=== PATIENT | female | born 1945 | race African-American/Black ===

== ENCOUNTER 2017-08-23 23:04 | Inpatient (IN) | payer MEDICARE, MEDICAID ==
[~2017-08-23] VITALS: Ht 167.6 cm; Wt 109.3 kg
--- NOTE | ~2017-08-23 | EC ---
PATIENT:ONEL BELTRAN DATE OF SERVICE: 08/23/17 SEX: F MEDICAL RECORD: [id number] DATE OF : 49 LOCATION:D.M2 D.211 AGE OF PATIENT: 72 ADMISSION DATE: 08/23/17 REFERRING PHYSICIAN: INTERPRETING PHYSICIAN: RAFITA JO MD ECHOCARDIOGRAM REPORT ECHO CHARGES 4 ECHO COMPLETE Date: 08/26 CLINICAL DIAGNOSIS: HTN ECHOCARDIOGRAPHIC MEASUREMENTS (adult normal given) AC root (d.<3.7cm) 3.4 cm LV Septum d (<1.2 cm> 1.7 cm Valve Excursion 2.1 cm LV Septum (systole) 2.4 cm Left Atria (s.<4.0cm> 3.4 cm LVPW d(<1.2cm) 1.4 cm RV (d.<2.3cm) 2.8 cm LVPW (sytole) 2.0 cm LV diastole(<5.6CM) 5.1 cm MV E-F(>70mm/sec) cm LV systole 2.5 cm LVOT Diameter 2.0 cm MV exc.(>10mm) cm Est.ejection fraction (50-75%) % DOPPLER: LVIT cm/sec A 71.0 cm/sec E 100 cm/sec LA cm/sec RVSP 30.0 mmHg LVOT 125 cm/sec AOP1/2T m/s Asc. Ao 165 cm/sec RVOT 89.0 cm/sec RA cm/sec PA 95.0 cm/sec AV Gradient Peak 11.0 mmHg AV Mean 5.6 mmHg AV Area 2.4 cm MV Gradient Peak 5.0 mmHg MV Mean 1.5 mmHg MV Area cm COMMENTS: Electrician Second: 1 MARYBETH EUBANKSOE Insulator Apprentice: 3 Dr. Mauro TAPE# PACS Pericardial Effusion N DATE OF SERVICE: 08/26/2017 Adequate 2D echo, color flow and spectral Doppler, and M-mode. Mild LVH. LV internal dimension normal. Wall motion normal. EF is greater than or equal to 55%. Aortic valve sclerosis, but no evidence of stenosis on Doppler interrogation. Left atrium is normal at 3.4 cm. Mitral valve shows no prolapse. Trace MR. Right-sided chambers normal. Trace TR. TRANSINT:[id number] Voice Confirmation ID: [id number] DOCUMENT ID: [id number] ECHOCARDIOGRAM REPORT [id number] RUBY,NECIE RAFITA JO MD at 1155 CC: [id number] DICTATION DATE: 08/26/17 1055 BLASTING GANG MINER: 08/26/17 1230 DIS IN 08/27/17 [place] [id number] [place] [id number]
[2017-08-24] MEDS ORDERED: SYNTHROID50 MCG PO (00:12)
[2017-08-24] MEDS ORDERED: BETOPTIC 0.5% 55 ML EACH EYE (00:13)
[2017-08-24] MEDS ORDERED: CARDURA1 MG PO (00:13)
[2017-08-24] MEDS ORDERED: PROLIA INJ 660 MG/M1 IJ (00:14)
[2017-08-24] MEDS ORDERED: DICLOFENAC SODI50 MG PO (00:34)
[2017-08-24] MEDS ORDERED: COLACE100 MG PO (00:34)
[2017-08-24] MEDS ORDERED: HCTZ25 MG PO (00:35)
[2017-08-24] MEDS ORDERED: LINZESS290 MCG PO (00:35)
[2017-08-24] MEDS ORDERED: ZESTRIL20 MG PO (00:36)
[2017-08-24] MEDS ORDERED: ATIVAN0.5 MG PO (00:36)
[2017-08-24] MEDS ORDERED: ROBAXIN500 MG PO (00:37)
[2017-08-24] MEDS ORDERED: PROTONIX40 MG PO (00:38)
[2017-08-24] MEDS ORDERED: LYRICA50 MG PO (00:38)
[2017-08-24] MEDS ORDERED: ULTRAM50 MG PO (00:39)
[2017-08-24 03:33] VITALS: BP 115/57
[2017-08-24 06:14] VITALS: BP 115/57; BMI 37.0
[2017-08-24 07:58] VITALS: BP 124/64
[2017-08-24 10:54] LABS: BASOPHILS 0.3 % (0-2); EOSINOPHILS 2.5 % (0-7); HEMATOCRIT 31.5 % (36.0-48.0); HEMOGLOBIN 9.8 g/dL (12-16); IMMATURE GRANULOCYTES 0.1 % (0-5); LYMPHOCYTES 27.1 % (15-50); MCH 25.9 pg (26.0-34.0); MCHC 31.1 g/dL (31.0-37.0); MCV 83.1 fL (80.0-100.0); MEAN PLATELET VOLUME 8.8 fL (7.4-10.4); MONOCYTES 5.9 % (2-11); NEUTROPHILS 64.1 % (40-80); PLATELET COUNT 219 10x3/uL (130-400); RBC 3.79 10x6/uL (4.00-5.40); RDW 13.8 % (11.5-14.5); WBC 6.8 10x3/uL (4.8-10.8)
[2017-08-24 11:08] LABS: INR 1.08 (0.85-1.17); PROTIME 13.6 SECONDS (11.6-15.0)
[2017-08-24 11:19] LABS: ALBUMIN 3.5 g/dL (3.4-5.0); ANION GAP 13.9 mmol/L (8-16); BILIRUBIN - TOTAL 0.7 mg/dL (0.2-1.3); CALCIUM 8.3 mg/dL (8.5-10.1); CARBON DIOXIDE 23.4 mmol/L (21.0-32.0); CREATININE - SERUM 1.9 mg/dL (0.6-1.3); MAGNESIUM - SERUM 1.5 mg/dL (1.8-2.4); POTASSIUM - SERUM 4.3 mmol/L (3.5-5.1); T4 THYROXIN - FREE 1.3 ng/dL (0.76-1.46); THYROID STIMULATING HORMONE 2.29 uIU/mL (0.36-3.74)
[2017-08-24 11:31] VITALS: BP 102/61
[2017-08-24 12:38] VITALS: Ht 167.6 cm; Wt 109.3 kg
[2017-08-24 14:47] LABS: APPEARANCE CLEAR (CLEAR); BILIRUBIN NEGATIVE (NEGATIVE); COLOR YELLOW (YELLOW); GLUCOSE NEGATIVE (NEGATIVE); KETONE NEGATIVE (NEGATIVE); NITRITE NEGATIVE (NEGATIVE); PROTEIN NEGATIVE (NEGATIVE); SPECIFIC GRAVITY 1.015 (1.005-1.020); UROBILINOGEN NORMAL (NORMAL)
[2017-08-24 14:52] LABS: BACTERIA MODERATE /hpf (NONE SEEN); EPITHELIAL CELLS 0-5 /hpf (0-5); RED CELLS - URINE 0-5 /hpf (0-5); WHITE CELLS - URINE 0-5 /hpf (0-5)
[2017-08-24 15:39] VITALS: BP 110/57
[2017-08-24 21:03] VITALS: BP 132/63
[2017-08-25 01:52] VITALS: BP 115/54
[2017-08-25 04:31] LABS: BASOPHILS 0.2 % (0-2); EOSINOPHILS 2.5 % (0-7); HEMATOCRIT 29.1 % (36.0-48.0); HEMOGLOBIN 9.2 g/dL (12-16); IMMATURE GRANULOCYTES 0.2 % (0-5); LYMPHOCYTES 27.9 % (15-50); MCH 26.1 pg (26.0-34.0); MCHC 31.6 g/dL (31.0-37.0); MCV 82.4 fL (80.0-100.0); MEAN PLATELET VOLUME 8.6 fL (7.4-10.4); MONOCYTES 7.6 % (2-11); NEUTROPHILS 61.6 % (40-80); PLATELET COUNT 194 10x3/uL (130-400); RBC 3.53 10x6/uL (4.00-5.40); RDW 13.7 % (11.5-14.5); WBC 5.7 10x3/uL (4.8-10.8)
[2017-08-25 05:10] LABS: ANION GAP 14.1 mmol/L (8-16); CALCIUM 8.3 mg/dL (8.5-10.1); CARBON DIOXIDE 22.9 mmol/L (21.0-32.0); CREATININE - SERUM 1.2 mg/dL (0.6-1.3)
[2017-08-25 05:37] VITALS: BP 117/54
[2017-08-25 09:01] VITALS: BP 129/54
[2017-08-25 13:03] VITALS: BP 130/58
[2017-08-25 17:15] VITALS: BP 133/63
[2017-08-25 21:25] VITALS: BP 147/66
[2017-08-26 00:35] VITALS: BP 153/63
[2017-08-26 05:04] LABS: BASOPHILS 0.2 % (0-2); EOSINOPHILS 1.8 % (0-7); HEMATOCRIT 28.2 % (36.0-48.0); HEMOGLOBIN 8.9 g/dL (12-16); IMMATURE GRANULOCYTES 0.2 % (0-5); LYMPHOCYTES 31.8 % (15-50); MCH 26.1 pg (26.0-34.0); MCHC 31.6 g/dL (31.0-37.0); MCV 82.7 fL (80.0-100.0); MEAN PLATELET VOLUME 8.9 fL (7.4-10.4); PLATELET COUNT 214 10x3/uL (130-400); RBC 3.41 10x6/uL (4.00-5.40); RDW 13.9 % (11.5-14.5); WBC 5.1 10x3/uL (4.8-10.8)
[2017-08-26 05:32] LABS: CALCIUM 7.8 mg/dL (8.5-10.1); CARBON DIOXIDE 22.8 mmol/L (21.0-32.0); CHLORIDE - SERUM 113 mmol/L (98-107); GLUCOSE 99 mg/dL (74-106); MAGNESIUM - SERUM 1.6 mg/dL (1.8-2.4); POTASSIUM - SERUM 3.9 mmol/L (3.5-5.1); SODIUM 145 mmol/L (136-145); eGFR NON AFRICAN AMERICAN 75 mL/min (90-120)
[2017-08-26 05:35] LABS: CALC OSMOLALITY 289 mosm/kg (275-300); CREATININE - SERUM 0.8 mg/dL (0.6-1.3); UREA NITROGEN 16 mg/dL (7-18)
[2017-08-26 05:41] VITALS: BP 129/62
[2017-08-26 08:39] VITALS: BP 132/57
[2017-08-26 12:16] VITALS: BP 133/61
[2017-08-26 16:55] VITALS: BP 142/65
[2017-08-26 19:00] VITALS: BP 152/84
[2017-08-27 04:00] VITALS: BP 162/86
[2017-08-27 05:11] LABS: BASOPHILS 0.2 % (0-2); EOSINOPHILS 2.6 % (0-7); HEMATOCRIT 29.1 % (36.0-48.0); HEMOGLOBIN 9.2 g/dL (12-16); IMMATURE GRANULOCYTES 0.2 % (0-5); LYMPHOCYTES 29.7 % (15-50); MCH 25.9 pg (26.0-34.0); MCHC 31.6 g/dL (31.0-37.0); MEAN PLATELET VOLUME 9.4 fL (7.4-10.4); NEUTROPHILS 58.3 % (40-80); PLATELET COUNT 221 10x3/uL (130-400); RBC 3.55 10x6/uL (4.00-5.40); RDW 13.7 % (11.5-14.5); WBC 6.2 10x3/uL (4.8-10.8)
[2017-08-27 05:24] LABS: CALC OSMOLALITY 292 mosm/kg (275-300); CALCIUM 7.9 mg/dL (8.5-10.1); CARBON DIOXIDE 23.4 mmol/L (21.0-32.0); CHLORIDE - SERUM 115 mmol/L (98-107); CREATININE - SERUM 0.8 mg/dL (0.6-1.3); GLUCOSE 100 mg/dL (74-106); POTASSIUM - SERUM 3.5 mmol/L (3.5-5.1); SODIUM 148 mmol/L (136-145); eGFR NON AFRICAN AMERICAN 75 mL/min (90-120)
[2017-08-27 05:25] LABS: UREA NITROGEN 11 mg/dL (7-18)
[2017-08-27 09:07] VITALS: BP 143/72
[2017-08-27 12:15] VITALS: BP 176/77
[2017-08-27 16:34] VITALS: BP 191/84
== END 2017-08-27 20:25 | DRG 315 ==
LOC: D.M2 23:04
PROVIDERS: Internal Medicine Nephrology
DX: I95.9 Hypotension, unspecified (principal); N17.9 Acute kidney failure, unspecified; N39.0 Urinary tract infection, site not specified; R00.1 Bradycardia, unspecified; E78.5 Hyperlipidemia, unspecified; E03.9 Hypothyroidism, unspecified; K21.9 Gastro-esophageal reflux disease without esophagitis; I10 Essential (primary) hypertension; E86.1 Hypovolemia